=== PATIENT | male | born 1965 | race Caucasian/White ===

== ENCOUNTER 2016-08-11 10:07 | Emergency (ER) | payer MEDICAID ==
[~2016-08-11] VITALS: Ht 182.9 cm; Wt 120.0 kg
[~2016-08-11 10:07] MED LIST: ACET500T98; [UNRECOGNIZED DRUG - CODE]
[2016-08-11 10:09] VITALS: Ht 182.9 cm; Wt 120.0 kg
--- NOTE | 2016-08-11 11:38 | ERD ---
ER Documentation Chief Complaint Date/Time DATE: 08/11/16 TIME: 11:34 Chief Complaint numbness in left hand started 2 days ago when exercising. Neuro intact,aox4 HPI Patient is a 51-year-old male who presents to the emergency department with left hand numbness 2 days. Patient states he also had some left leg numbness which is now resolved. Patient states 3 days ago he did lift some heavy weights when exercising. His symptoms started after doing this activity. Patient has normal range of motion of his extremities. Patient is able to ambulate without any difficulty. Patient denies any slurred speech. Patient denies any facial droop. Patient is he did have some numbness on the left side of his face yesterday however it resolved after massaging his face. Patient denies any fevers, chills, chest pain, shortness of breath, cough, rhinorrhea, headache, blurry vision, loss of vision, neck pain, neck stiffness or loss of consciousness. ROS All systems reviewed and are negative except as per history of present illness. Medications Home Meds Reported Medications Ibuprofen (Motrin Migraine) 200 Mg Tablet 04/12/11 Acetaminophen (Tylenol) 500 Mg Tab 04/12/11 Allergies Allergies: Coded Allergies: No Known Allergy (Unverified , 04/12/11) PMhx/Soc History of Surgery: No Anesthesia Reaction: No Hx Neurological Disorder: No Hx Respiratory Disorders: No Hx Cardiac Disorders: No Hx Psychiatric Problems: No Hx Miscellaneous Medical Probl: No Hx Alcohol Use: No Hx Substance Use: No Hx Tobacco Use: No (06/2016) Smoking Status: Former smoker FmHx Family History: No diabetes Physical Exam Vitals Vital Signs Date Time Temp Pulse Resp B/P Pulse Ox O2 Delivery O2 Flow Rate FiO2 08/11/16 10:09 98.5 80 20 160/95 100 Physical Exam GENERAL: Well-developed, well-nourished male. Appears in no acute distress. Speaking in full sentences HEAD: Normocephalic, atraumatic. EYES: Pupils are equally reactive bilaterally. EOMs grossly intact. No conjunctival erythema. ENT: Moist mucous membranes. No uvula deviation. No kissing tonsils. NECK: Supple. No meningismus. Normal range of motion of the neck. LUNG: Clear to auscultation bilaterally. No rhonchi, wheezing, rales or coarse breath sounds. HEART: Regular rate and rhythm. No murmurs, rubs or gallops. BACK: No midline tenderness. EXTREMITIES: Equal pulses bilaterally. No peripheral clubbing, cyanosis or edema. No unilateral leg swelling. Negative Phalen's sign. NEUROLOGIC: Alert and oriented x3, cooperative. Mood and affect appropriate to situation. Cranial nerves II through XII are grossly intact. Normal speech. Motor exam: 5/5 strength in upper and lower extremities. Sensory exam: Sensation intact to light touch on all four extremities. Cerebellar function exam: Rapid alternating movements intact. No dysmetria on codwku-ey-isqb and kuhf-ha-wask test. Steady gait. No pronator drift. SKIN: Normal color. Warm and dry. No rashes or lesions. Procedures/MDM MEDICAL DECISION MAKING: This is a 51-year-old male who presents with left hand numbness after heavy lifting while exercising 2 days ago. Vital signs were reviewed. Full neurological exam was normal. Given these findings, the patient's presentation is most consistent with left upper extremity numbness of unknown etiology. May be resolving nerve compression injury secondary to history of heavy lifting. I have a much lower clinical concern for intracranial hemorrhage, CVA, fracture, dislocation, branchial plexus injury, carpal tunnel syndrome, neuropathy, bells palsy. DISCHARGE: At this time, patient is stable for discharge and outpatient management. Stroke warning signs and precautions were discussed with the patient. I have encouraged the patient to hydrate well. I have instructed the patient to follow- up with his/her primary care physician in 1-2 days. If symptoms persist, patient may need to see a specialist for further examinations and testing. I have instructed the patient to promptly return to the ER at any time for any new or worsening symptoms including increased increased pain, fever, nausea, vomiting, numbness, neck stiffness, visual changes, weakness or LOC. The patient and/or family expressed understanding of and agreement with this plan. All questions were answered. Home care instructions were provided. Patient's blood pressure was elevated (>120/80) but appears stable without evidence of hypertensive emergency, hypertensive urgency or end-organ failure. I had discussion with the patient about the risks of hypertension. I have advised the patient to follow up with his/her primary care physician for outpatient monitoring and treatment for hypertension in 2-3 days. I have instructed the patient to return to the ER for any new or worsening symptoms including chest pain, shortness of breath, headache, blurred vision, confusion, nausea, vomiting or LOC. Departure Diagnosis: Primary Impression: Numbness Condition: Stable Patient Instructions: Paraesthesias Referrals: [facility] YOU HAVE RECEIVED A MEDICAL SCREENING EXAM AND THE RESULTS INDICATE THAT YOU DO NOT HAVE A CONDITION THAT REQUIRES URGENT TREATMENT IN THE EMERGENCY DEPARTMENT. FURTHER EVALUATION AND TREATMENT OF YOUR CONDITION CAN WAIT UNTIL YOU ARE SEEN IN YOUR DOCTORS OFFICE WITHIN THE NEXT 1-2 DAYS. IT IS YOUR RESPONSIBILITY TO MAKE AN APPOINTMENT FOR FOLOW-UP CARE. IF YOU HAVE A PRIMARY DOCTOR --you should call your primary doctor and schedule an appointment IF YOU DO NOT HAVE A PRIMARY DOCTOR YOU CAN CALL OUR PHYSICIAN REFERRAL HOTLINE AT IF YOU CAN NOT AFFORD TO SEE A PHYSICIAN YOU CAN CHOSE FROM THE FOLLOWING [facility] [address] [facility] [address] [facility] [address] [facility] [address] [facility] [address]. [facility] [address] [facility] YOU HAVE RECEIVED A MEDICAL SCREENING EXAM AND THE RESULTS INDICATE THAT YOU DO NOT HAVE A CONDITION THAT REQUIRES URGENT TREATMENT IN THE EMERGENCY DEPARTMENT. FURTHER EVALUATION AND TREATMENT OF YOUR CONDITION CAN WAIT UNTIL YOU ARE SEEN IN YOUR DOCTORS OFFICE WITHIN THE NEXT 1-2 DAYS. IT IS YOUR RESPONSIBILITY TO MAKE AN APPOINTMENT FOR FOLOW-UP CARE. IF YOU HAVE A PRIMARY DOCTOR --you should call your primary doctor and schedule and appointment IF YOU DO NOT HAVE A PRIMARY DOCTOR YOU CAN CALL OUR PHYSICIAN REFERRAL HOTLINE AT . IF YOU CAN NOT AFFORD TO SEE A PHYSICIAN YOU CAN CHOSE FROM THE FOLLOWING [facility] INSTITUTIONS: [facility] [address] [place] [address] [facility] [address] [place] [address] [facility] [address] [place] [address] Additional Instructions: Call your primary care doctor TOMORROW for an appointment during the next 1-2 days.See the doctor sooner or return here if your condition worsens before your appointment time. Patient advised to return immediately for any new or worsening symptoms including but not limited to, slurred speech, arm weakness, facial droop, chest pain, shortness of breath, headache or loss consciousness. THEO ZAFAR PA-C August 11, 2016 11:38 THEO ZAFAR PA-C August 11, 2016 11:38
== END 2016-08-11 11:37 | disposition home or self-care (01) ==
LOC: FTE 10:07
DX: R20.0 Anesthesia of skin (principal); Z87.891 Personal history of nicotine dependence
CPT/HCPCS: 99282